=== PATIENT | female | born 1945 | race Caucasian/White ===

== ENCOUNTER 2017-01-05 19:45 | Outpatient (CLI) | payer MEDICARE, OTHER | END 2017-01-05 19:46 | disposition critical access hospital (66) | LOC: EMS 19:45 | PROVIDERS: ATTEND Surgery | DX: R53.1 Weakness (principal); R29.810 Facial weakness | CPT/HCPCS: A0425; A0427 ==

== ENCOUNTER 2017-01-05 20:04 | Emergency (ER) | payer MEDICARE, OTHER ==
--- NOTE | 2017-01-05 20:11 | ED Physician Documentation ---
PD HPI FOCAL NEURO - Stated complaint Stated Complaint: WEAKNESS, RIGHT FACIAL DROOP - History obtained from History obtained from: Patient, EMS - History of Present Illness Timing - onset: Other (71-year-old woman with history of TIA. She thinks she is on Plavix. She is not quite sure of her medications. She has been feeling generally weak for the last 2-3 days and she has a right facial droop of unknown time course. This is associated with a mild headache.) - Treatment prior to arrival Treatment prior to arrival: FSBS en route was in the one-teens Review of Systems Ten Systems: 10 systems reviewed and negative Constitutional: denies: Fever, Chills Cardiac: denies: Chest pain / pressure, Palpitations Respiratory: denies: Dyspnea, Cough GI: denies: Abdominal Pain PD PAST MEDICAL HISTORY - Past Medical History Past Medical History: Yes Neuro: TIA - Present Medications Home Medications: Ambulatory Orders Medication Instructions Recorded Confirmed Atorvastatin [Lipitor] 40 mg PO DAILY 01/05/17 01/05/17 Chlorthalidone 25 mg PO DAILY 01/05/17 01/05/17 Clopidogrel [Plavix] 75 mg PO ONCE 01/05/17 01/05/17 Memantine [Namenda] 5 mg PO BID 01/05/17 01/05/17 Sitagliptin Phosphate [Januvia] 25 mg PO DAILY 01/05/17 01/05/17 hydroCHLOROthiazide 25 mg PO DAILY 01/05/17 01/05/17 [Hydrochlorothiazide] - Allergies Allergies/Adverse Reactions: Allergies Allergy/AdvReac Type Severity Reaction Status Date / Time No Known Drug Allergies Allergy Verified 01/05/17 20:21 - Living Situation Living Situation: reports: With spouse/s.o. - Social History Does the pt smoke?: No - Family History Family history: reports: Non contributory PD ED PE NORMAL - Vitals Vital signs reviewed: Yes - General General: Alert and oriented X 3, No acute distress - HEENT HEENT: PERRL, EOMI, Other (She does have a right facial droop which is partial and spares the forehead) - Neck Neck: Supple, no meningeal sign, No bony TTP - Cardiac Cardiac: RRR, No murmur - Respiratory Respiratory: No respiratory distress, Clear bilaterally - Abdomen Abdomen: Soft, Non tender - Derm Derm: Normal color, Warm and dry - Extremities Extremities: No edema, No calf tenderness / cord - Neuro Neuro: Alert and oriented X 3 - Psych Psych: Normal mood, Normal affect NIHSS - Time Time: 20:06 - Level of Consciousness Level of consciousness: (0) Alert, Keenly responsive LOC Questions: (0) Answers both Q's correct LOC Commands: (0) Performs both correctly - Gaze Best Gaze: (0) Normal - Visual Visual: (0) No loss - Facial Palsy Facial Palsy: (2) Partial paralysis - Motor Arms (both separate) Motor Arm (right): (0) No drift Motor Arm (left): (0) No drift - Motor Legs (both separate) Motor Leg (right): (0) No drift Motor Leg (left): (0) No drift - Limb Ataxia Limb Ataxia: (0) Absent - Sensory Sensory: (0) Normal - Best Language Best Language: (0) No aphasia - Dysarthria Dysarthria: (0) Normal - Extinction and Inattention (formally neg Extinction and inattention: (0) No abnormality - Total Score/Results Total Score/Result: 2 Results - Vitals Vitals: Vital Signs - 24 hr 01/05/17 01/05/17 01/05/17 20:05 20:27 21:04 Temperature 36.3 C L Heart Rate 69 63 63 Respiratory 18 14 18 Rate Blood Pressure 190/61 H 155/74 H 138/55 H O2 Saturation 100 100 100 Oxygen O2 Source Room air - EKG (time done) 2013 Rate: Rate (enter#) (66) Rhythm: NSR [place]: Normal Intervals: Normal MO QRS: Normal Ischemia: Other (Baseline wander in the inferior leads making it difficult to interpret, no obvious ischemic change.) Computer interpretation: Agree with computer - Labs Labs: Laboratory Tests 01/05/17 01/05/17 01/05/17 20:40 20:40 20:40 WBC 6.5 RBC 4.53 Hgb 13.0 Hct 39.2 MCV 86.5 MCH 28.6 MCHC 33.1 RDW 12.9 Plt Count 200 MPV 8.9 Neut # 3.7 Lymph # 2.1 [place] # 0.5 Eos # 0.1 Baso # 0.1 Absolute Nucleated RBC 0.00 Nucleated RBC % 0.0 PT 10.9 INR 1.0 Sodium 139 Potassium 3.8 Chloride 104 Carbon Dioxide 21 Anion Gap 14.0 H BUN 37 H Creatinine 1.6 H Estimated GFR (MDRD) 32 L Glucose 141 H Calcium 9.2 Total Bilirubin 0.4 AST 23 ALT 23 Alkaline Phosphatase 52 Total Protein 7.2 Albumin 4.1 Globulin 3.1 Albumin/Globulin Ratio 1.3 Lipase 105 H Ethyl Alcohol 68.6 - Rads (name of study) CT Head Radiology: EMP read contemporaneously (Extensive chronic ischemic disease above and below the tentorium without obvious acute disease.) PD MEDICAL DECISION MAKING - ED course ED course: 71-year-old woman with strokelike symptoms. The arrived while she was in [place], says she has vascular dementia. On normal day does not know the date and is fairly confused, but is ambulatory with a good quality of life. She says she was normal up until 5:00 when she laid down to take a nap and all the current symptoms were present when she arose from the nap a little after 7. Case was discussed by phone with Dr. Jarred Orta at [facility]. He was willing to accept in transfer but does not recommend TPA at this juncture given the time course and underlying disease. It was preference that she be transferred to [facility] for continuity of care. Unfortunately they did not have a bed, either [facility] or [facility] was contacted and she was accepted by Dr. Dempsey the stroke neurologist there at 9:15 PM. Departure - Departure Disposition: 02 Transfer Acute Care Hosp Clinical Impression: Cerebrovascular accident (CVA) Qualifiers: CVA mechanism: embolism Precerebral and cerebral artery: unspecified cerebral artery Qualified Code(s): I63.40 - Cerebral infarction due to embolism of unspecified cerebral artery Condition: Stable
--- NOTE | 2017-01-05 20:41 | CT Preliminary Report ---
Exam: CT HEAD W/O STROKE PROTOCOL IMPRESSION: No acute hemorrhage. Extensive findings most consistent with chronic ischemic brain disea se above and below the tentorium. [facility] SITE ID: [id number]
--- NOTE | 2017-01-05 20:43 | CT Report ---
EXAM: CT HEAD EXAM DATE: 01/05/2017 08:28 PM. CLINICAL HISTORY: Right facial droop. Weakness. COMPARISON: None. TECHNIQUE: Multiaxial CT images were obtained from the foramen magnum to the vertex. Reformats: Coron al. IV contrast: None. In accordance with CT protocol optimization, one or more of the following dose reduction techniques w ere utilized for this exam: automated exposure control, adjustment of mA and/or KV based on patient s ize, or use of iterative reconstructive technique. FINDINGS: No evidence for acute intracranial hemorrhage. Diffuse volume loss. No midline shift. Ventriculomegal y is probably from atrophy. Chronic bilateral cerebellar ischemic infarcts, very large on the left and moderately large on the ri ght. Extensive bilateral chronic appearing cerebral encephalomalacia and gliosis consistent with old infar cts. Extensive chronic infarct of the medial right parietal and occipital lobes. Large and extensive regions of chronic encephalomalacia and gliosis involving the left frontal, parietal and occipital lo bes. Encephalomalacia and gliosis consistent with old cerebral infarcts appears to involve cortex as well as underlying white matter. No clear evidence for an acute infarct. Given the degree of extensive brain abnormality, a more recen t infarct could be missed. There are also findings of extensive chronic small vessel ischemic disease including lacunar like inf arcts in the region of the left thalami. Grossly intact calvarium. No acute sinus or mastoid disease. IMPRESSION: No acute hemorrhage. Extensive findings most consistent with chronic ischemic brain disea se above and below the tentorium. CRITICAL TEST: The findings were discussed with Beltran Knox on 01/05/2017 at 8:36 PM [facility] Referring Provider Line: [phone] SITE ID: [id number]
[2017-01-05 20:46] LABS: BASOPHILS # (AUTO) 0.1 10^3/uL (0.0-0.1); BASOPHILS % (AUTO) 1.1 %; EOSINOPHILS # (AUTO) 0.1 10^3/uL (0.0-0.7); EOSINOPHILS % (AUTO) 1.9 %; HCT - HEMATOCRIT 39.2 % (37.0-47.0); LYMPHOCYTES # (AUTO) 2.1 10^3/uL (1.5-3.5); LYMPHOCYTES % (AUTO) 32.5 %; MEAN CORPUSCULAR HEMOGLOBIN 28.6 pg (27.0-31.0); MEAN CORPUSCULAR HGB CONC 33.1 g/dL (32.0-36.0); MEAN CORPUSCULAR VOLUME 86.5 fL (81.0-99.0); MEAN PLATELET VOLUME 8.9 fL (7.9-10.8); MONOCYTES # (AUTO) 0.5 10^3/uL (0.0-1.0); MONOCYTES % (AUTO) 7.8 %; NEUTROPHILS # (AUTO) 3.7 10^3/uL (1.5-6.6); NEUTROPHILS % (AUTO) 56.7 %; RED BLOOD COUNT 4.53 10^6/uL (4.20-5.40); RED CELL DISTRIBUTION WIDTH 12.9 % (12.0-15.0); UNCORRECTED WHITE BLOOD COUNT 6.5 x10^3/uL; WHITE BLOOD COUNT 6.5 x10^3/uL (4.8-10.8)
[2017-01-05 20:56] LABS: PT - PROTHROMBIN TIME 10.9 secs (9.9-12.6)
[2017-01-05 20:59] LABS: ALBUMIN/GLOBULIN RATIO 1.3 (1.0-2.2); BILIRUBIN,TOTAL 0.4 mg/dL (0.2-1.0); CALCIUM 9.2 mg/dL (8.5-10.3); CREATININE 1.6 mg/dL (0.4-1.0); POTASSIUM 3.8 mmol/L (3.5-5.0); TOTAL PROTEIN 7.2 g/dL (6.7-8.2)
[2017-01-05 21:54] VITALS: BP 140/52
== END 2017-01-05 22:26 | disposition short-term general hospital (02) ==
LOC: ED 20:04
DX: I63.40 Cerebral infarction due to embolism of unspecified cerebral artery (principal); R94.31 Abnormal electrocardiogram [ECG] [EKG]; F01.50 Vascular dementia, unspecified severity, without behavioral disturbance, psychotic disturbance, mood disturbance, and anxiety; Z86.73 Personal history of transient ischemic attack (TIA), and cerebral infarction without residual deficits; Z79.01 Long term (current) use of anticoagulants
CPT/HCPCS: 36415; 70450; 80053; 83690; 84484; 85025; 85610; 93005; 99285; G0480; 80320

== ENCOUNTER 2017-03-26 12:38 | Emergency (ER) | payer MEDICARE, OTHER ==
[2017-03-26 12:59] VITALS: BP 147/65
[2017-03-26 13:38] LABS: ALBUMIN 4.5 g/dL (3.2-5.5); ALBUMIN/GLOBULIN RATIO 1.4 (1.0-2.2); BILIRUBIN,TOTAL 0.5 mg/dL (0.2-1.0); CALCIUM 9.7 mg/dL (8.5-10.3); CREATININE 1.4 mg/dL (0.4-1.0); TOTAL PROTEIN 7.8 g/dL (6.7-8.2)
--- NOTE | 2017-03-26 13:55 | ED Physician Documentation ---
History of Present Illness - Stated complaint Stated Complaint: LAB RESULT - Chief complaint Chief Complaint: General - History obtained from History obtained from: Patient, Family - History of Present Illness Timing: Other ([place] and her potassium was high so she was referred here for recheck. 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 : None HEENT: None Psych: None Musculoskeletal: None Derm: None - Past Surgical History Past Surgical History: Yes Cardiovascular: Coronary stent - Present Medications Home Medications: Ambulatory Orders Medication Instructions Recorded Confirmed Atorvastatin [Lipitor] 40 mg PO DAILY 01/05/17 03/26/17 Chlorthalidone 25 mg PO DAILY 01/05/17 03/26/17 Clopidogrel [Plavix] 75 mg PO ONCE 01/05/17 03/26/17 Memantine [Namenda] 5 mg PO BID 01/05/17 03/26/17 Sitagliptin Phosphate [Januvia] 25 mg PO DAILY 01/05/17 03/26/17 hydroCHLOROthiazide 25 mg PO DAILY 01/05/17 03/26/17 [Hydrochlorothiazide] - Allergies Allergies/Adverse Reactions: Allergies Allergy/AdvReac Type Severity Reaction Status Date / Time No Known Drug Allergies Allergy Verified 01/05/17 20:21 - Social History Does the pt smoke?: No Smoking Status: Never smoker Does the pt drink ETOH?: Yes Does the pt have substance abuse?: No - Immunizations Immunizations are current?: Yes PD ED PE NORMAL - Vitals Vital signs reviewed: Yes - General General: Alert and oriented X 3, No acute distress - Neuro Neuro: Alert and oriented X 3, Normal speech - Psych Psych: Normal mood, Normal affect Results - Vitals Vitals: Vital Signs - 24 hr 03/26/17 12:55 Temperature 37.1 C Heart Rate 69 Respiratory 18 Rate Blood Pressure 147/65 H O2 Saturation 99 Oxygen O2 Source Room air - Labs Labs: Laboratory Tests 03/26/17 13:16 Sodium 140 Potassium 3.9 Chloride 101 Carbon Dioxide 25 Anion Gap 14.0 H BUN 27 H Creatinine 1.4 H Estimated GFR (MDRD) 37 L Glucose 257 H Calcium 9.7 Total Bilirubin 0.5 AST 21 ALT 18 Alkaline Phosphatase 60 Total Protein 7.8 Albumin 4.5 Globulin 3.3 Albumin/Globulin Ratio 1.4 Lipase 63 H Departure - Departure Disposition: 01 Home, Self Care Clinical Impression: Abnormal laboratory test Hypertension Qualifiers: Hypertension type: essential hypertension Qualified Code(s): I10 - Essential ( primary) hypertension Condition: Good Record reviewed to determine appropriate education?: Yes Comments: On recheck your potassium here was 3.9 which is normal. Follow-up with your doctor as scheduled.
== END 2017-03-26 13:56 | disposition home or self-care (01) ==
LOC: ED 12:38
DX: R79.9 Abnormal finding of blood chemistry, unspecified (principal); I10 Essential (primary) hypertension; I25.10 Atherosclerotic heart disease of native coronary artery without angina pectoris; Z95.5 Presence of coronary angioplasty implant and graft; Z86.73 Personal history of transient ischemic attack (TIA), and cerebral infarction without residual deficits
CPT/HCPCS: 36415; 80053; 83690; 99282

== ENCOUNTER 2017-07-19 21:01 | Outpatient (CLI) | payer MEDICARE, OTHER | END 2017-07-19 21:02 | disposition critical access hospital (66) | LOC: EMS 21:01 | PROVIDERS: ATTEND Surgery | DX: R41.82 Altered mental status, unspecified (principal); R47.81 Slurred speech; Z72.89 Other problems related to lifestyle | CPT/HCPCS: A0425; A0427 ==

== ENCOUNTER 2017-07-19 21:21 | Emergency (ER) | payer MEDICARE, OTHER ==
[2017-07-19] MEDS ORDERED: THIAMINE INJ 100 MG in SODIUM CHLORIDE 0.9% 50 ML IV STA (21:25)
--- NOTE | 2017-07-19 21:26 | ED Physician Documentation ---
PD HPI FOCAL NEURO - Stated complaint Stated Complaint: GLF, STROKE? - Chief complaint Chief Complaint: Neuro - History obtained from History obtained from: EMS - History of Present Illness Timing - onset: Today (Reportedly was at [employer] drinking and then kind of slumped down to the ground without injury. There was a concern for stroke, she has had a stroke before. She denied drinking to the paramedics, but they felt she smelled strongly of alcohol. For me she is basically uncooperative and provides no specific history other than saying she wants to go home.) Review of Systems Unable to obtain: Intoxicated, Uncooperative PD PAST MEDICAL HISTORY - Present Medications Home Medications: Ambulatory Orders Medication Instructions Recorded Confirmed Atorvastatin [Lipitor] 40 mg PO DAILY 01/05/17 03/26/17 Chlorthalidone 25 mg PO DAILY 01/05/17 03/26/17 Clopidogrel [Plavix] 75 mg PO ONCE 01/05/17 03/26/17 Memantine [Namenda] 5 mg PO BID 01/05/17 03/26/17 Sitagliptin Phosphate [Januvia] 25 mg PO DAILY 01/05/17 03/26/17 hydroCHLOROthiazide 25 mg PO DAILY 01/05/17 03/26/17 [Hydrochlorothiazide] Atorvastatin [Lipitor] 80 mg PO DAILY 07/19/17 07/19/17 Chlorthalidone [Chlorthalidone] 1.5 tab PO DAILY 07/19/17 07/19/17 hydroCHLOROthiazide 1 tab PO DAILY 07/19/17 07/19/17 [Hydrochlorothiazide] - Allergies Allergies/Adverse Reactions: Allergies Allergy/AdvReac Type Severity Reaction Status Date / Time No Known Drug Allergies Allergy Unverified 07/19/17 21:25 PD ED PE NORMAL - Vitals Vital signs reviewed: Yes - General General: Other (She is sleepy, arouses to voice and will say her name follow commands, she is a reticent historian. 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 Eye Opening: To Voice Motor: Obeys Commands Verbal: Confused GCS Score: 13 Results - Vitals Vitals: Vital Signs - 24 hr 07/19/17 07/19/17 07/19/17 21:22 22:00 22:24 Temperature 36.1 C L Heart Rate 68 68 69 Respiratory 16 16 18 Rate Blood Pressure 160/100 H 135/82 H 154/69 H O2 Saturation 94 97 95 Oxygen O2 Source Room air - EKG (time done) 2130 Rate: Rate (enter#) (68) Rhythm: NSR [place]: Normal Intervals: Normal PA QRS: Normal Ischemia: Normal ST segments Computer interpretation: Agree with computer - Labs Labs: Laboratory Tests 07/19/17 07/19/17 07/19/17 21:55 21:55 21:55 WBC 6.4 RBC 4.40 Hgb 12.4 Hct 38.1 MCV 86.7 MCH 28.2 MCHC 32.6 RDW 13.0 Plt Count 207 MPV 8.3 Neut # (Auto) 3.3 Lymph # (Auto) 2.4 [place] # (Auto) 0.4 Eos # (Auto) 0.2 Baso # (Auto) 0.1 Absolute Nucleated RBC 0.00 Nucleated RBC % 0.0 PT 10.6 INR 0.9 Sodium 137 Potassium 4.2 Chloride 106 Carbon Dioxide 23 Anion Gap 8.0 BUN 25 H Creatinine 1.3 H Estimated GFR (MDRD) 40 L Glucose 129 H Calcium 8.5 Total Bilirubin 0.4 AST 21 ALT 17 Alkaline Phosphatase 52 Total Protein 6.9 Albumin 3.9 Globulin 3.0 Albumin/Globulin Ratio 1.3 Lipase 60 H Ethyl Alcohol 162.4 - Rads (name of study) CT Head Radiology: EMP read contemporaneously (NAD, old mult infarcts) PD MEDICAL DECISION MAKING - ED course ED course: 72-year-old woman presents with altered mental status having slumped down after drinking. The is adamant to the point of being belligerent that she is not intoxicated however rapid improvement in her clinical exam as well as her blood work would suggest otherwise. He is demanding a neurologic consultation and [facility] was paged for this at 10:17 PM. I spoke with the tele-stroke neurologist at [facility] who felt that there was little to no utility doing a neurologic consultation on this intoxicated woman. But we settled on and what I think is reasonable is the will take her home and she will sleep it off and if she has persistent new neurologic deficits he is advised to return immediately in the morning for reevaluation. Departure - Departure Disposition: 01 Home, Self Care Clinical Impression: Altered mental status Qualifiers: Altered mental status type: disorientation Qualified Code(s): R41.0 - Disorientation, unspecified Alcohol intoxication Qualifiers: Complication of substance-induced condition: uncomplicated Qualified Code(s): F10.920 - Alcohol use, unspecified with intoxication, uncomplicated Condition: Good Record reviewed to determine appropriate education?: Yes Instructions: ED Alcohol Intoxication Comments: Call your doctor to arrange a follow-up appointment, make the next available appointment. In the interim, return anytime if worse or if new symptoms develop. Your blood pressure was elevated today on check into the emergency department. This does not mean that you have hypertension, it is a common phenomenon to come to the emergency department and have elevated blood pressure. I recommend that you see your primary care physician within the week to have it rechecked when you are feeling better. Discharge Date/Time: 07/19/17 22:28
[2017-07-19 21:59] LABS: BASOPHILS # (AUTO) 0.1 10^3/uL (0.0-0.1); BASOPHILS % (AUTO) 1.3 %; EOSINOPHILS # (AUTO) 0.2 10^3/uL (0.0-0.7); EOSINOPHILS % (AUTO) 3.4 %; HGB - HEMOGLOBIN 12.4 g/dL (12.0-16.0); LYMPHOCYTES # (AUTO) 2.4 10^3/uL (1.5-3.5); LYMPHOCYTES % (AUTO) 37.7 %; MEAN CORPUSCULAR HEMOGLOBIN 28.2 pg (27.0-31.0); MEAN CORPUSCULAR HGB CONC 32.6 g/dL (32.0-36.0); MEAN CORPUSCULAR VOLUME 86.7 fL (81.0-99.0); MEAN PLATELET VOLUME 8.3 fL (7.9-10.8); MONOCYTES # (AUTO) 0.4 10^3/uL (0.0-1.0); MONOCYTES % (AUTO) 6.3 %; NEUTROPHILS # (AUTO) 3.3 10^3/uL (1.5-6.6); NEUTROPHILS % (AUTO) 51.3 %; PLT - PLATELET COUNT 207 10^3/uL (130-450); WHITE BLOOD COUNT 6.4 x10^3/uL (4.8-10.8)
[2017-07-19 22:06] LABS: INR 0.9 (0.8-1.2); PT - PROTHROMBIN TIME 10.6 secs (9.9-12.6)
--- NOTE | 2017-07-19 22:08 | CT Preliminary Report ---
Exam: CT HEAD W/O IMPRESSION: Chronic and senescent changes appear unchanged. Multifocal infarcts appear unchanged. No acute intracranial abnormality seen. [facility] SITE ID: [id number]
[2017-07-19 22:11] LABS: ALBUMIN 3.9 g/dL (3.2-5.5); ALBUMIN/GLOBULIN RATIO 1.3 (1.0-2.2); BILIRUBIN,TOTAL 0.4 mg/dL (0.2-1.0); CALCIUM 8.5 mg/dL (8.5-10.3); CREATININE 1.3 mg/dL (0.4-1.0); TOTAL PROTEIN 6.9 g/dL (6.7-8.2)
--- NOTE | 2017-07-19 22:11 | CT Report ---
EXAM: CT HEAD EXAM DATE: 07/19/2017 09:46 PM. CLINICAL HISTORY: Possible head injury, alcohol. COMPARISON: Head CT 01/05/2017. TECHNIQUE: Multiaxial CT images were obtained from the foramen magnum to the vertex. Reformats: Coron al. IV contrast: None. In accordance with CT protocol optimization, one or more of the following dose reduction techniques w ere utilized for this exam: automated exposure control, adjustment of mA and/or KV based on patient s ize, or use of iterative reconstructive technique. FINDINGS: Parenchyma: No intraparenchymal hemorrhage. No evidence of mass, midline shift, or CT findings of acu te infarction. Sky-white differentiation is distinct. Diffuse chronic microangiopathic white matter changes are evident. Moderate to large left frontal and parietal chronic encephalomalacia appear unch anged. Moderate right posterior parietal encephalomalacia, unchanged. Large left and moderate right c erebellar encephalomalacia, unchanged. Extraaxial Spaces: Normal for age. No subdural or epidural collections identified. Ventricles: The ventricles and cortical sulci are enlarged, consistent with age-related tissue loss. Sinuses: Unremarkable. Bones: No evidence of fracture or calvarial defect. IMPRESSION: Chronic and senescent changes appear unchanged. Multifocal infarcts appear unchanged. No acute intracranial abnormality seen. [facility] Referring Provider Line: [phone] SITE ID: [id number]
[2017-07-19 22:24] VITALS: BP 154/69
== END 2017-07-19 22:28 | disposition home or self-care (01) ==
LOC: EDUNIT# → ED 21:21
DX: R41.0 Disorientation, unspecified (principal); F10.129 Alcohol abuse with intoxication, unspecified; R03.0 Elevated blood-pressure reading, without diagnosis of hypertension
CPT/HCPCS: 70450; 80053; 83690; 85025; 85610; 93005; 96365; 99283; 99284; G0480; J3411; J7040; 36415; 80320

== ENCOUNTER 2018-02-07 13:28 | Emergency (ER) | payer MEDICARE, OTHER ==
[2018-02-07] MEDS ORDERED: HYDROcod/ACETAM 5/325 MG TABLET PO STA (16:23)
--- NOTE | 2018-02-07 16:38 | ED Physician Documentation ---
History of Present Illness - Stated complaint Stated Complaint: GLF - Chief complaint Chief Complaint: General - History obtained from History obtained from: Patient, Family - History of Present Illness Timing: Yesterday Pain level max: 8 Pain level now: 7 - Additonal information Additional information: 72-year-old female who fell after getting knocked over by a [place] yesterday. Landed on the concrete. Increased pain in her low back and sacral area today. Difficulty walking. Did strike her head, but no loss of consciousness. No vomiting. She does take Plavix however. Pain is better with rest and worse with movement. Has not taken anything for pain. 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 : None HEENT: None Psych: None Musculoskeletal: None Derm: None - Past Surgical History Past Surgical History: No Cardiovascular: Coronary stent - Present Medications Home Medications: Ambulatory Orders Medication Instructions Recorded Confirmed Chlorthalidone 25 mg PO DAILY 01/05/17 03/26/17 Clopidogrel [Plavix] 75 mg PO ONCE 01/05/17 03/26/17 Memantine [Namenda] 5 mg PO BID 01/05/17 03/26/17 Sitagliptin Phosphate [Januvia] 25 mg PO DAILY 01/05/17 03/26/17 hydroCHLOROthiazide 25 mg PO DAILY 01/05/17 03/26/17 [Hydrochlorothiazide] Atorvastatin [Lipitor] 80 mg PO DAILY 07/19/17 07/19/17 - Allergies Allergies/Adverse Reactions: Allergies Allergy/AdvReac Type Severity Reaction Status Date / Time Tetanus Vaccines and Toxoid Allergy Rash Verified 02/07/18 16:39 - Social History Does the pt smoke?: No Smoking Status: Never smoker Does the pt drink ETOH?: No Does the pt have substance abuse?: No - Immunizations Immunizations are current?: No - POLST Patient has POLST: No PD ED PE NORMAL - Vitals Vital signs reviewed: Yes - General General: Alert and oriented X 3, No acute distress, Well developed/nourished - HEENT HEENT: Atraumatic, PERRL, EOMI, Moist mucous membranes - Neck Neck: Supple, no meningeal sign, No bony TTP - Cardiac Cardiac: RRR - Respiratory Respiratory: No respiratory distress, Clear bilaterally - Abdomen Abdomen: Soft, Non tender, Non distended - Back Back: Other (No tenderness palpation over the cervical or thoracic spines. No step-off or deformity. She does have tenderness at the base of the lumbar spine as well as the upper sacrum. No step-off or deformity. Pelvis is stable.) - Derm Derm: Warm and dry - Extremities Extremities: No deformity, No tenderness to palpate, Normal ROM s pain, Other (No tenderness over the shoulders, elbows, wrists, hips, knees, ankles or feet.) - Neuro Neuro: Alert and oriented X 3, shim plug cutter 2-12 intact, No motor deficit, No sensory deficit Results - Vitals Vitals: Vital Signs - 24 hr 02/07/18 02/07/18 02/07/18 13:58 16:34 18:27 Temperature 36.4 C L Heart Rate 75 79 74 Respiratory 18 16 18 Rate Blood Pressure 125/57 L 130/62 135/66 H O2 Saturation 99 100 99 Oxygen O2 Source Room air - Rads (name of study) head cT Radiology: Prelim report reviewed, EMP read contemporaneously, See rad report (No acute intracranial abnormality. ) L spine xray Radiology: Prelim report reviewed, EMP read contemporaneously, See rad report (No acute fracture identified. ) sacrum xray Radiology: Prelim report reviewed, EMP read contemporaneously, See rad report (Osteoarthritis of the sacroiliac joints, hips and lower lumbar spine) PD MEDICAL DECISION MAKING - ED course Complexity details: reviewed results, re-evaluated patient, considered differential, d/w patient, d/w family ED course: 72-year-old female who presents after a fall. No acute findings on x-rays. Feels better after medications. Ambulating without difficulty. Patient and family counseled regarding signs and symptoms for which I believe and urgent re- evaluation would be necessary. Patient with good understanding of and agreement to plan and is comfortable going home at this time This document was made in part using voice recognition software. While efforts are made to proofread this document, sound alike and grammatical errors may occur. Departure - Departure Disposition: 01 Home, Self Care Clinical Impression: Head injury Qualifiers: Encounter type: initial encounter Qualified Code(s): S09.90XA - Unspecified injury of head, initial encounter Sacral contusion Qualifiers: Encounter type: initial encounter Qualified Code(s): S30.0XXA - Contusion of lower back and pelvis, initial encounter Condition: Good Instructions: ED Contusion Sacrum Coccyx Follow-Up: your,doctor in 1 week for re-evaluation. [Other] Comments: Thankfully your x-rays and CT scans are normal tonight. Return if you worsen. You can use Motrin or Tylenol as needed for pain. Ice will also help. Discharge Date/Time: 02/07/18 18:35
--- NOTE | 2018-02-07 17:31 | CT Report ---
Reason: fall, head injury, pt takes plavix Procedure Date: 02/07/2018 Accession Number: [id number] / [id number] Procedure: CT - Head W/O CPT Code: FULL RESULT: EXAM: CT HEAD EXAM DATE: 02/07/2018 05:13 PM. CLINICAL HISTORY: Fall, head injury, pt takes plavix. COMPARISON: 07/19/2017. TECHNIQUE: Multiaxial CT images were obtained from the foramen magnum to the vertex. Reformats: Sagittal and coronal. IV contrast: None. In accordance with CT protocol optimization, one or more of the following dose reduction techniques were utilized for this exam: automated exposure control, adjustment of mA and/or KV based on patient size, or use of iterative reconstructive technique. FINDINGS: Brain and ventricles: No intraparenchymal hemorrhage. No evidence of mass, midline shift, or CT findings of acute infarction. Multifocal old infarcts with encephalomalacia and volume loss are unchanged. Mild bilateral basal ganglia mineralization. Sky-white differentiation is distinct. The ventricles are within normal limits in size.No extra-axial hemorrhage. Sinuses and Orbits: Imaged paranasal sinuses, orbits, and mastoids show no significant abnormality. Bones: No evidence of fracture or calvarial defect. Other: None. IMPRESSION: 1. No acute intracranial abnormality. 2. Unchanged multifocal old infarcts. RADIA
--- NOTE | 2018-02-07 17:33 | XRAY Report ---
Reason: fall, low back pain Procedure Date: 02/07/2018 Accession Number: [id number] / [id number] Procedure: XR - Lumbar Spine 2 View CPT Code: FULL RESULT: EXAM: LUMBOSACRAL SPINE RADIOGRAPHY EXAM DATE: 02/07/2018 05:22 PM. CLINICAL HISTORY: Fall, low back pain. COMPARISONS: None. TECHNIQUE: 2 views. FINDINGS: Alignment: Normal. No spondylolisthesis or scoliosis. Bones: Five xes-kyc-wwnjasu lumbar vertebral bodies are present. No acute fracture identified. Mild wedging of T11 may be physiologic. Disks: Mild lower lumbar disk degeneration. Facets: Mild lower lumbar facet arthrosis. Sacroiliac Joints: Unremarkable. Soft Tissues: Unremarkable. IMPRESSION: No acute fracture identified. RADIA
--- NOTE | 2018-02-07 17:35 | XRAY Report ---
Reason: fall, sacrum pain Procedure Date: 02/07/2018 Accession Number: [id number] / [id number] Procedure: XR - Sacrum/Coccyx CPT Code: FULL RESULT: EXAM: SACRUM AND COCCYX RADIOGRAPHY EXAM DATE: 02/07/2018 05:22 PM. HISTORY: Fall, sacrum pain. COMPARISONS: None. TECHNIQUE: 3 views. FINDINGS: Alignment: Normal. The sacrum and coccyx are normally aligned. Bones: Normal. No fracture or bone lesion. Joints: Mild sacroiliac joint and hip osteoarthritis. Moderate degenerative change of the lower lumbar spine. Soft Tissues: Unremarkable. IMPRESSION: Osteoarthritis of the sacroiliac joints, hips and lower lumbar spine. RADIA
[2018-02-07 18:28] VITALS: BP 135/66
== END 2018-02-07 18:35 | disposition home or self-care (01) ==
LOC: ED 13:28
DX: S09.90XA Unspecified injury of head, initial encounter (principal); S30.0XXA Contusion of lower back and pelvis, initial encounter; W54.1XXA Struck by dog, initial encounter; Y93.9 Activity, unspecified; I25.10 Atherosclerotic heart disease of native coronary artery without angina pectoris; Z86.73 Personal history of transient ischemic attack (TIA), and cerebral infarction without residual deficits; Z79.02 Long term (current) use of antithrombotics/antiplatelets
CPT/HCPCS: 70450; 72100; 72220; 99283; A9270

== ENCOUNTER 2018-05-31 17:39 | Outpatient (CLI) | payer MEDICARE, OTHER | END 2018-05-31 17:40 | disposition critical access hospital (66) | LOC: EMS 17:39 | PROVIDERS: ATTEND Surgery | DX: R55 Syncope and collapse (principal); R51 Headache | CPT/HCPCS: A0425; A0427 ==

== ENCOUNTER 2018-05-31 17:59 | Inpatient (IN) | payer MEDICARE, OTHER ==
--- NOTE | 2018-05-31 18:22 | ED Physician Documentation ---
PD HPI SYNCOPE - Stated complaint Stated Complaint: SYNCOPE - Chief complaint Chief Complaint: Neuro - History obtained from History obtained from: Patient, Family, EMS - History of Present Illness Witnessed: Witnessed (She was at home and walking, said she did not feel good. Passed out but caught her so no injury. Cumming nauseous. 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 : None HEENT: None Psych: None Musculoskeletal: None Derm: None - Past Surgical History Past Surgical History: No General: Cholecystectomy /AUTOMOTIVE LOT ATTENDANT: Hysterectomy Cardiovascular: Coronary stent - Present Medications Home Medications: Ambulatory Orders Medication Instructions Recorded Confirmed Chlorthalidone 25 mg PO DAILY 01/05/17 03/26/17 Clopidogrel [Plavix] 75 mg PO ONCE 01/05/17 03/26/17 Memantine [Namenda] 5 mg PO BID 01/05/17 03/26/17 Sitagliptin Phosphate [Januvia] 25 mg PO DAILY 01/05/17 03/26/17 hydroCHLOROthiazide 25 mg PO DAILY 01/05/17 03/26/17 [Hydrochlorothiazide] Atorvastatin [Lipitor] 80 mg PO DAILY 07/19/17 07/19/17 - Allergies Allergies/Adverse Reactions: Allergies Allergy/AdvReac Type Severity Reaction Status Date / Time Tetanus Vaccines and Toxoid Allergy Rash Verified 05/31/18 18:13 - Social History Does the pt smoke?: No Smoking Status: Never smoker Does the pt drink ETOH?: No Does the pt have substance abuse?: No - Immunizations Immunizations are current?: No - POLST Patient has POLST: No PD ED PE NORMAL - Vitals Vital signs reviewed: Yes - General General: No acute distress, Well developed/nourished, Other (slurred speech, somnolent) - HEENT HEENT: PERRL (bloodshot eyes), Other (nystagmus) - Neck Neck: Supple, no meningeal sign, No bony TTP - Cardiac Cardiac: RRR, No murmur - Respiratory Respiratory: No respiratory distress, Clear bilaterally - Abdomen Abdomen: Normal bowel sounds, Soft, Non tender - Back Back: No CVA TTP, No spinal TTP - Derm Derm: Normal color, Warm and dry - Neuro Neuro: metal trimmer 2-12 intact, Other (She seems confused, she cannot come up with the month or the year or the president.) Eye Opening: Spontaneous Motor: Obeys Commands Results - Vitals Vitals: Vital Signs - 24 hr 05/31/18 05/31/18 18:08 19:38 Temperature 36.7 C Heart Rate 89 95 Respiratory 17 14 Rate Blood Pressure 194/70 H 177/88 H O2 Saturation 98 99 Oxygen O2 Source Room air - EKG (time done) 1815 Rate: Rate (enter#) (86) Rhythm: NSR [place]: Normal Intervals: Normal [place] QRS: Normal Ischemia: Normal ST segments Computer interpretation: Agree with computer - Labs Labs: Laboratory Tests 05/31/18 05/31/18 05/31/18 19:51 19:51 19:51 WBC 6.9 RBC 4.57 Hgb 12.9 Hct 39.1 MCV 85.6 MCH 28.2 MCHC 32.9 RDW 13.2 Plt Count 210 MPV 8.8 Neut # (Auto) 4.8 Lymph # (Auto) 1.5 [place] # (Auto) 0.4 Eos # (Auto) 0.1 Baso # (Auto) 0.1 Absolute Nucleated RBC 0.00 Nucleated RBC % 0.0 Sodium 134 L Potassium 4.5 Chloride 97 L Carbon Dioxide 27 Anion Gap 10.0 BUN 31 H Creatinine 1.8 H Estimated GFR (MDRD) 28 L Glucose 572 H* Calcium 9.1 Total Bilirubin 0.2 AST 16 ALT 12 Alkaline Phosphatase 74 Troponin I < 0.04 B-Natriuretic Peptide Total Protein 7.2 Albumin 3.9 Globulin 3.3 Albumin/Globulin Ratio 1.2 Lipase 89 H Ethyl Alcohol < 5.0 05/31/18 19:51 WBC RBC Hgb Hct MCV MCH MCHC RDW Plt Count MPV Neut # (Auto) Lymph # (Auto) [place] # (Auto) Eos # (Auto) Baso # (Auto) Absolute Nucleated RBC Nucleated RBC % Sodium Potassium Chloride Carbon Dioxide Anion Gap BUN Creatinine Estimated GFR (MDRD) Glucose Calcium Total Bilirubin AST ALT Alkaline Phosphatase Troponin I B-Natriuretic Peptide 92 Total Protein Albumin Globulin Albumin/Globulin Ratio Lipase Ethyl Alcohol - Rads (name of study) CT Head Radiology: EMP read contemporaneously (Old infarcts NAD) PD MEDICAL DECISION MAKING - ED course ED course: This is a 72-year-old woman who presents with a syncopal episode. On arrival here she seems demented but her exam is otherwise normal except for hypertension. During the course of her stay she did become a little agitated with more slurred speech. This could be due in some measure to her significant hyperglycemia for which she was administered IV fluids and insulin, or may be a bit of hypertensive encephalopathy and she was given labetalol here. Spoke with Dr. Mauricio for admission at 8:40 PM. Departure - Departure Disposition: ED Place in Observation Clinical Impression: Altered mental status, TIA (transient ischemic attack), Hyperglycemia Condition: Serious
--- NOTE | 2018-05-31 19:15 | CT Report ---
Reason: syncope, altered Procedure Date: 05/31/2018 Accession Number: [id number] / [id number] Procedure: CT - HEAD WO CPT Code: FULL RESULT: EXAM: CT HEAD EXAM DATE: 05/31/2018 06:55 PM. CLINICAL HISTORY: Syncope, altered. COMPARISON: HEAD W/O 02/07/2018 4:47 PM. TECHNIQUE: Multiaxial CT images were obtained from the foramen magnum to the vertex. Reformats: Sagittal and coronal. IV contrast: None. In accordance with CT protocol optimization, one or more of the following dose reduction techniques were utilized for this exam: automated exposure control, adjustment of mA and/or KV based on patient size, or use of iterative reconstructive technique. FINDINGS: Parenchyma: No intraparenchymal hemorrhage. No evidence of mass, midline shift, or CT findings of acute infarction. Sky-white differentiation is distinct. Diffuse chronic microangiopathic white matter changes are evident. Large regions of encephalomalacia involving both cerebellar lobes worse on the left than on the right, bilateral occipital, left parietal and left frontal regions are similar to the previous study. Chronic left basal ganglia lacunar infarct is noted. Extraaxial Spaces: Normal for age. No subdural or epidural collections identified. Ventricles: The ventricles and cortical sulci are enlarged, consistent with age-related tissue loss. Sinuses and orbits: Imaged paranasal sinuses, orbits, and mastoids show no significant abnormality. Bones: No evidence of fracture or calvarial defect. Other: Extensive calcifications are present in the cavernous carotid and vertebral arteries. Patient is status post left cataract procedure. IMPRESSION: 1. Generalized age-related cortical atrophic changes without evidence of acute intracranial abnormality. 2. Multiple areas of stable encephalomalacia from previous infarcts. RADIA
[2018-05-31 19:58] LABS: BASOPHILS # (AUTO) 0.1 10^3/uL (0.0-0.1); BASOPHILS % (AUTO) 1.1 %; EOSINOPHILS # (AUTO) 0.1 10^3/uL (0.0-0.7); EOSINOPHILS % (AUTO) 1.6 %; HGB - HEMOGLOBIN 12.9 g/dL (12.0-16.0); LYMPHOCYTES # (AUTO) 1.5 10^3/uL (1.5-3.5); LYMPHOCYTES % (AUTO) 21.5 %; MEAN CORPUSCULAR HEMOGLOBIN 28.2 pg (27.0-31.0); MEAN CORPUSCULAR HGB CONC 32.9 g/dL (32.0-36.0); MEAN CORPUSCULAR VOLUME 85.6 fL (81.0-99.0); MEAN PLATELET VOLUME 8.8 fL (7.9-10.8); MONOCYTES # (AUTO) 0.4 10^3/uL (0.0-1.0); MONOCYTES % (AUTO) 6.5 %; NEUTROPHILS # (AUTO) 4.8 10^3/uL (1.5-6.6); NEUTROPHILS % (AUTO) 69.3 %; PLT - PLATELET COUNT 210 10^3/uL (130-450); RED BLOOD COUNT 4.57 10^6/uL (4.20-5.40); RED CELL DISTRIBUTION WIDTH 13.2 % (12.0-15.0); WHITE BLOOD COUNT 6.9 x10^3/uL (4.8-10.8)
[2018-05-31 20:20] LABS: ALBUMIN 3.9 g/dL (3.2-5.5); ALBUMIN/GLOBULIN RATIO 1.2 (1.0-2.2); ALKALINE PHOSPHATASE 74 IU/L (42-121); ALT ALANINE AMINOTRANSFERASE 12 IU/L (10-60); AST ASPARTATE AMINOTRANSFERASE 16 IU/L (10-42); BILIRUBIN,TOTAL 0.2 mg/dL (0.2-1.0); BUN - BLOOD UREA NITROGEN 31 mg/dL (6-20); CALCIUM 9.1 mg/dL (8.5-10.3); CARBON DIOXIDE - CO2 27 mmol/L (21-32); CHLORIDE 97 mmol/L (101-111); CREATININE 1.8 mg/dL (0.4-1.0); GFR - MDRD 28 (>89); LIPASE 89 U/L (22-51); SODIUM 134 mmol/L (135-145); TOTAL PROTEIN 7.2 g/dL (6.7-8.2)
[2018-05-31 20:21] LABS: GLUCOSE 572 mg/dL (70-100)
[2018-05-31] MEDS ORDERED: SODIUM CHLORIDE 0.9% 1,000 ML IV ONE (20:28)
[2018-05-31] MEDS ORDERED: INSULIN REGULAR HUMAN 100 UNIT/1 ML 10 ML MDV IVP STA (20:28)
[2018-05-31] MEDS ORDERED: LABETALOL 20 MG/4 ML SYRINGE IVP STA (20:33)
[2018-05-31] MEDS ORDERED: LORazepam 2 MG/ML VIAL IVP STA (20:34)
[2018-05-31] MEDS ORDERED: ASPIRIN CHEW 81 MG TABLET PO STA (20:34)
[2018-05-31] MEDS ORDERED: ACETAMINOPHEN 325 MG TABLET PO PRN (20:52)
[2018-05-31] MEDS ORDERED: ONDANSETRON ODT 4 MG TABLET TL PRN (20:57)
[2018-05-31] MEDS ORDERED: SODIUM CHLORIDE FLUSH 0.9% 10 ML SYRINGE IVP PRN (20:57)
[2018-05-31] MEDS ORDERED: ATORVASTATIN 40 MG TABLET PO SCH (21:00)
[2018-05-31] MEDS ORDERED: LABETALOL 20 MG/4 ML SYRINGE IVP PRN (21:03)
[2018-05-31] MEDS ORDERED: hydrALAZINE INJ 20 MG/ML VIAL IVP PRN (21:04)
--- NOTE | 2018-05-31 21:11 | HISTORY & PHYSICAL EXAMINATION ---
Chief Complaint - Chief Complaint Chief Complaint: syncope with LOC and speech difficulties Stroke/TIA/Neuro Template - Admitted From Admitted from: ED - History Obtained From Records Reviewed: RN notes reviewed History obtained from: Patient, Family Exam limitations: Other (History of vascular dementia makes for a difficult history and physical and patient is a poor historian) - History of Present Illness HPI Comment/Other: This is a demented 72-year-old with history of uncontrolled hypertension, hyperlipidemia, CAD with prior stent x1, prior CVA who presents with a syncopal event with associated loss of consciousness for which has been had essentially caught her before hitting the floor. Patient does have a history of vascular dementia and was apparently having new onset dysarthria in the ER. Patient has chronic kidney disease stage III as per 2[facility] labs with a creatinine ranging from 1.31.6. Hyperglycemia was seen with a glucose of 572 with no reported history of insulin requiring diabetes or jyz-jzbchqj-pguawhjre type 2 diabetes per . Patient's alcohol level was less than 5.0 and a lipase of 89. Patient's vital signs are stable however hypertensive emergency noted with 194/70 and symptoms of what appeared to be hypertensive encephalopathy. IV labetalol plus aspirin and CT were performed in ED. CT showed no acute focal changes with Large encephalomalacia on both cerebellar lobes left more than right with chronic left basal ganglia lacunar infarcts noted. Patient with dysarthria which appears to be new onset for patient as per and family member. Patient has no apparent drooping of face and essentially with vascular dementia and unable to state the time or place currently. No bowel bladder incontinence or seizure activity noted. No trauma noted on initial exam. Pa tient to be admitted for further evaluation management treatment. 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: positive: Hysterectomy Cardiovascular: positive: Coronary stent Social & Family Hx - Social History Does the pt smoke?: No Smoking Status: Never smoker Does the pt drink ETOH?: No Does the pt have substance abuse?: No - POLST Patient has POLST: No Meds/Allgy - Home Medications Home Medications: Ambulatory Orders Medication Instructions Recorded Confirmed Chlorthalidone 25 mg PO DAILY 01/05/17 03/26/17 Clopidogrel [Plavix] 75 mg PO ONCE 01/05/17 03/26/17 Memantine [Namenda] 5 mg PO BID 01/05/17 03/26/17 Sitagliptin Phosphate [Januvia] 25 mg PO DAILY 01/05/17 03/26/17 hydroCHLOROthiazide 25 mg PO DAILY 01/05/17 03/26/17 [Hydrochlorothiazide] Atorvastatin [Lipitor] 80 mg PO DAILY 07/19/17 07/19/17 - Allergies Allergies/Adverse Reactions: Allergies Allergy/AdvReac Type Severity Reaction Status Date / Time Tetanus Vaccines and Toxoid Allergy Rash Verified 05/31/18 18:13 Review of Systems - All Other Systems All Other Systems: reports: Reviewed and negative Prior Level of Functionality: Unknown functional capacity and home ADLs. Patient is a poor historian with vascular dementia Exam - Vital Signs Vital Signs: Vital Signs x48h Temp Pulse Resp BP Pulse Ox 05/31/18 20:51 97 15 184/69 H 98 05/31/18 19:38 95 14 177/88 H 99 05/31/18 18:08 36.7 C 89 17 194/70 H 98 - Physical Exam General Appearance: positive: No acute distress, Alert, Anxious, Other (Patient with vascular dementia) Eyes Bilateral: positive: Normal inspection, PERRL, EOMI ENT: positive: ENT inspection nml, Pharynx nml, No signs of dehydration Neck: positive: Nml inspection, Thyroid nml, No JVD, Trachea midline. negative: Thyromegaly Respiratory: positive: Chest non-tender, No respiratory distress, Breath sounds nml Cardiovascular: positive: Regular rate & rhythm, No murmur, No gallop. negative: PMI displaced laterally, Gallop/S4 Peripheral Pulses: positive: 2+ Abdomen: positive: Non-tender, No organomegaly, Nml bowel sounds, No distention Extremities: positive: Non-tender, Full ROM, Nml appearance. negative: Pedal edema Neurologic/Psychiatric: positive: CN's nml (2-12), Disoriented to place, Disoriented to time, Slurred/abnml speech, Other (Patient has dysarthria). negative: Facial droop Babinski Reflex: Right: Absent, Left: Absent Results - Lab Results Lab results reviewed: Yes Fish Bones: 05/31/18 19:51 05/31/18 19:51 Other Lab Results: Lab Results x24hrs 05/31/18 05/31/18 05/31/18 Range/Units 19:51 19:51 19:51 WBC (4.8-10.8) x10^3/uL RBC (4.20-5.40) 10^6/uL Hgb (12.0-16.0) g/dL Hct (37.0-47.0) % MCV (81.0-99.0) fL MCH (27.0-31.0) pg MCHC (32.0-36.0) g/dL RDW (12.0-15.0) % Plt Count (130-450) 10^3/uL MPV (7.9-10.8) fL Neut # (Auto) (1.5-6.6) 10^3/uL Lymph # (Auto) (1.5-3.5) 10^3/uL [place] # (Auto) (0.0-1.0) 10^3/uL Eos # (Auto) (0.0-0.7) 10^3/uL Baso # (Auto) (0.0-0.1) 10^3/uL Absolute Nucleated RBC x10^3/uL Nucleated RBC % /100WBC Sodium 134 L (135-145) mmol/L Potassium 4.5 (3.5-5.0) mmol/L Chloride 97 L (101-111) mmol/L Carbon Dioxide 27 (21-32) mmol/L Anion Gap 10.0 (6-13) BUN 31 H (6-20) mg/dL Creatinine 1.8 H (0.4-1.0) mg/dL Estimated GFR (MDRD) 28 L (>89) Glucose 572 H* (70-100) mg/dL Calcium 9.1 (8.5-10.3) mg/dL Total Bilirubin 0.2 (0.2-1.0) mg/dL AST 16 (10-42) IU/L ALT 12 (10-60) IU/L Alkaline Phosphatase 74 (42-121) IU/L Troponin I < 0.04 (<0.49) ng/mL B-Natriuretic Peptide 92 (5-100) pg/mL Total Protein 7.2 (6.7-8.2) g/dL Albumin 3.9 (3.2-5.5) g/dL Globulin 3.3 (2.1-4.2) g/dL Albumin/Globulin Ratio 1.2 (1.0-2.2) Lipase 89 H (22-51) U/L Ethyl Alcohol < 5.0 mg/dL 05/31/18 Range/Units 19:51 WBC 6.9 (4.8-10.8) x10^3/uL RBC 4.57 (4.20-5.40) 10^6/uL Hgb 12.9 (12.0-16.0) g/dL Hct 39.1 (37.0-47.0) % MCV 85.6 (81.0-99.0) fL MCH 28.2 (27.0-31.0) pg MCHC 32.9 (32.0-36.0) g/dL RDW 13.2 (12.0-15.0) % Plt Count 210 (130-450) 10^3/uL MPV 8.8 (7.9-10.8) fL Neut # (Auto) 4.8 (1.5-6.6) 10^3/uL Lymph # (Auto) 1.5 (1.5-3.5) 10^3/uL [place] # (Auto) 0.4 (0.0-1.0) 10^3/uL Eos # (Auto) 0.1 (0.0-0.7) 10^3/uL Baso # (Auto) 0.1 (0.0-0.1) 10^3/uL Absolute Nucleated RBC 0.00 x10^3/uL Nucleated RBC % 0.0 /100WBC Sodium (135-145) mmol/L Potassium (3.5-5.0) mmol/L Chloride (101-111) mmol/L Carbon Dioxide (21-32) mmol/L Anion Gap (6-13) BUN (6-20) mg/dL Creatinine (0.4-1.0) mg/dL Estimated GFR (MDRD) (>89) Glucose (70-100) mg/dL Calcium (8.5-10.3) mg/dL Total Bilirubin (0.2-1.0) mg/dL AST (10-42) IU/L ALT (10-60) IU/L Alkaline Phosphatase (42-121) IU/L Troponin I (<0.49) ng/mL B-Natriuretic Peptide (5-100) pg/mL Total Protein (6.7-8.2) g/dL Albumin (3.2-5.5) g/dL Globulin (2.1-4.2) g/dL Albumin/Globulin Ratio (1.0-2.2) Lipase (22-51) U/L Ethyl Alcohol mg/dL - Diagnostic Imaging Results Diagnostic Imaging Results: positive: Final report reviewed Diagnostic Imaging Results Comments: CT head shows large areas of encephalomalacia left more than right cerebellar hemispheres, chronic left basal ganglia lacunar infarct unchanged with no acute infarcts noted. - EKG Results EKG Interpreted Independently: Yes EKG Comparison: positive: Old EKG unavailable EKG Findings: Sinus rhythm at 86 bpm with no bundle branch block or ST-T wave abnormalities. Impression/Plan - Problem List Problem List: Assessment: 1. Syncopal event with associated loss of consciousness 2. Acute suspected hypertensive encephalopathy 3. Hyperglycemia 4. TIA with history of prior CVA 5. Acute kidney injury/chronic kidney disease stage III 6. Hyperlipidemia 7. Vascular dementia Plan: 1. We will place in ICU under obs/tele, neurochecks, Neuroimaging to include MRI/MRA in the setting of prior CVA and patient not being on Plavix or other anticoagulants although home medication list Plavix and statin. Patient is a poor historian and has underlying vascular dementia. Possibly linked to patient's hypertensive excursions as patient's dysarthria along with loss of consciousness may all be linked to uncontrolled blood pressure. Obtain echocardiogram with bubble study in a.m. as well. Evaluate for other causes, TSH to follow. 2. Will place on IV labetalol as needed with parameters along with hydralazine IV, clonidine 0.2 mg p.o. QPM with parameters. We will try to avoid precipitous drops in blood pressure. MRI in a.m. 3. Patient is a poor historian, however conveys that she is not a diabetic however on her home medication she has Carluvfelicia listed. Will place on a carb controlled diet. Patient likely has underlying uncontrolled type 2 diabetes mellitus. Correctional insulin sliding scale has been ordered. Hemoglobin A1c was elevated at 10.9 with an average glucose of 266. Will place on insulin sliding scale medium to high correctional dose as hyperglycemia in the setting of cerebrovascular disease carries high mortality/morbidity. 4. Continue with medical management as per above. Aspirin 325 p.o. daily, neurochecks, neuro imaging studies to follow. 5. IV fluids to continue and anticipated on BP excursions. Avoid nephrotoxic agents, perfuse kidneys, likely attributable to hypertensive nephropathy. 6. In the setting of patient's prior CVA patient will need a high intensity statin atorvastatin 80 mg p.o. every afternoon to start. LDL and total cholesterol fasting lipids in a.m. 7. Patient was on Namenda may resume once patient tolerating p.o. diet. Patient has large areas of encephalomalacia which likely as a result of ischemic vascular insults which may worsen patient's cognition and memory. 8. Advance care planning education counseling. Surrogate/ was updated on patient's medical condition, plan of care, trajectory of illness and will continue with CODE STATUS as being full at this time. DVT/GI prophylaxis to continue with heparin renal adjusted and famotidine 20 mg p.o. twice daily. CODE STATUS: Full code. Core Measures - Anticipated LOS I expect patient to be DC'd or transferred within 96 hours.: Yes - DVT/VTE - Prophylaxis VTE/DVT Device ordered at admit?: Yes VTE/DVT Prophylaxis med ordered at admit?: Yes - Stroke - Rehab Assessment Rehab services assessment to be ordered?: No - AMI - Statin at Admit Aspirin Prescribed on Admit: Yes
[2018-05-31 21:32] LABS: HB2 TOTAL 14.1 g/dL; HEMOGLOBIN A1C 1.35 g/dL; HEMOGLOBIN A1C % 10.9 % (4.6-6.2)
[2018-05-31] MEDS: SODIUM CHLORIDE 0.9% 1,000 ML IV SCH (22:57)
[2018-05-31] MEDS: HEPARIN 5,000 UNIT/ML VIAL SUBQ SCH (22:57)
[2018-05-31] MEDS: FAMOTIDINE 20 MG TABLET PO SCH (22:57)
[2018-05-31] MEDS: INSULIN ASPART 300 UNIT/3 ML PEN SUBQ SCH (23:36)
[2018-06-01] MEDS: SODIUM CHLORIDE FLUSH 0.9% 10 ML SYRINGE IVP SCH ×2 (01:02→12:05)
[2018-06-01] MEDS: SODIUM CHLORIDE 0.9% 1,000 ML IV SCH (04:10)
[2018-06-01 04:50] LABS: BASOPHILS # (AUTO) 0.1 10^3/uL (0.0-0.1); BASOPHILS % (AUTO) 0.7 %; EOSINOPHILS # (AUTO) 0.2 10^3/uL (0.0-0.7); HGB - HEMOGLOBIN 12.3 g/dL (12.0-16.0); LYMPHOCYTES # (AUTO) 2.7 10^3/uL (1.5-3.5); LYMPHOCYTES % (AUTO) 34.9 %; MEAN CORPUSCULAR HEMOGLOBIN 27.8 pg (27.0-31.0); MEAN CORPUSCULAR HGB CONC 32.9 g/dL (32.0-36.0); MEAN CORPUSCULAR VOLUME 84.6 fL (81.0-99.0); MEAN PLATELET VOLUME 8.9 fL (7.9-10.8); MONOCYTES # (AUTO) 0.6 10^3/uL (0.0-1.0); MONOCYTES % (AUTO) 7.3 %; NEUTROPHILS # (AUTO) 4.2 10^3/uL (1.5-6.6); NEUTROPHILS % (AUTO) 55.1 %; PLT - PLATELET COUNT 190 10^3/uL (130-450); RED BLOOD COUNT 4.42 10^6/uL (4.20-5.40); RED CELL DISTRIBUTION WIDTH 13.1 % (12.0-15.0); WHITE BLOOD COUNT 7.7 x10^3/uL (4.8-10.8)
[2018-06-01 05:12] LABS: CHOL/HDL RATIO 4.7 (<4.4); CHOLESTEROL 214 mg/dL; HDL CHOLESTEROL 46 mg/dL; LDL CHOLESTEROL,CALCULATED 135 mg/dL; LDL/HDL RATIO 2.9 (<4.4); VLDL CHOLESTEROL 33 mg/dL
[2018-06-01 05:22] LABS: MAGNESIUM 1.9 mg/dL (1.7-2.8); PHOSPHORUS 3.2 mg/dL (2.5-4.6)
[2018-06-01 06:29] LABS: ALBUMIN 3.3 g/dL (3.2-5.5); CALCIUM 8.4 mg/dL (8.5-10.3); CREATININE 1.3 mg/dL (0.4-1.0); PHOSPHORUS 3.2 mg/dL (2.5-4.6)
[2018-06-01] MEDS ORDERED: ASPIRIN 325 MG TABLET PO SCH (08:00)
[2018-06-01] MEDS ORDERED: MULTIVITAMIN TABLET PO SCH (08:00)
[2018-06-01] MEDS: INSULIN ASPART 300 UNIT/3 ML PEN SUBQ SCH ×2 (08:28→12:09)
[2018-06-01] MEDS: FAMOTIDINE 20 MG TABLET PO SCH (08:40)
[2018-06-01] MEDS: HEPARIN 5,000 UNIT/ML VIAL SUBQ SCH (08:40)
[2018-06-01] MEDS ORDERED: GLIMEPIRIDE 2 MG TABLET PO SCH (12:00)
[2018-06-01] MEDS ORDERED: GADOBUTROL 7.5 MMOL/7.5 ML VIAL ONE (14:03)
--- NOTE | 2018-06-01 16:06 | MRI Report ---
Reason: TIA Procedure Date: 06/01/2018 Accession Number: [id number] / [id number] Procedure: MRI - Brain W/O CPT Code: FULL RESULT: EXAM: MRI BRAIN WITHOUT CONTRAST EXAM DATE: 06/01/2018 03:08 PM. CLINICAL HISTORY: Transient ischemic attack. Confusion, altered mental status. COMPARISON: HEAD W/O 05/31/2018 6:54 PM HEAD W/O 02/07/2018 4:47 PM. TECHNIQUE: Multiplanar, multisequence T1-weighted and fluid-sensitive MR sequences of the brain were performed. Sequences optimized for routine evaluation. Other: None. IV Contrast: None. FINDINGS: The images are degraded by severe motion. There is a small focus of increased signal intensity on the b-1000 diffusion weighted images demonstrated within the left occipital lobe exhibiting suggested reduced signal intensity on the ADC map (80, 805 and 76, 803). However of note, this is within an area of superimposed encephalomalacia and therefore it is possible that this could reflect an area of T2 shine through. Recommend correlation with clinical symptoms. There is no large confluent area of diffusion restriction to suggest an additional area of acute or subacute cerebral infarction. However, again the exam is somewhat limited due to motion. There are large areas of encephalomalacia involving the bilateral cerebellar hemispheres. There is extensive encephalomalacia of the right occipital lobe and to a lesser degree the left occipital lobe and a large area of involvement of the left parietal lobe as well as the left frontal lobe. There is an old lacunar infarction of the right centrum semiovale. There are punctate and confluent T2 hyperintensities of the subcortical, deep, and periventricular white matter of the supratentorial brain consistent with a moderate degree of chronic small vessel ischemia. There is mild to moderate generalized volume loss. There is a small focus of susceptibility demonstrated in the medial left frontal lobe (15, 701). There is a similar appearance in the left temporal operculum (13, 701). There is a similar appearance in the anterior and mid right temporal lobe. This likely reflects old blood products from previous microhemorrhages. This can be seen in cases of chronic hypertensive encephalopathy versus amyloid angiopathy. There is a small area of encephalomalacia demonstrated in the ventral left thalamus and the left lentiform nuclei. IMPRESSION: 1. The images are degraded by severe motion. 2. There are 2 adjacent punctate foci of questionable diffusion restriction versus T2 shine through in the left occipital lobe. This is partially superimposed on an area of encephalomalacia. Otherwise there is no large area of diffusion restriction to suggest a large area of acute or subacute cerebral infarction. If the patient remains symptomatic then follow-up repeat imaging once the patient is able to remain motionless for the exam may be useful and can be obtained as deemed clinically appropriate. 3. There are large areas of encephalomalacia within the bilateral cerebellar hemispheres and the right and left occipital lobes and the left parietal lobe and left frontal lobe. There is a moderate degree of chronic small vessel ischemia. There is mild to moderate generalized volume loss. The critical result notification system was initiated by Dr. Eric Wilson at 03:56 PM on 06/01/2018. The above critical result findings and limitations of the exam were discussed with Dr. Harmon by Dr. Eric Wilson at 04:04 PM on 06/01/2018.
--- NOTE | 2018-06-01 16:08 | MRI Report ---
Reason: TIA Procedure Date: 06/01/2018 Accession Number: [id number] / [id number] Procedure: MRI - Angio Brain W/O (MRA) CPT Code: FULL RESULT: EXAM MRA BRAIN EXAM DATE: 06/01/2018 03:09 PM. CLINICAL HISTORY: Confusion, altered mental status, TIA. COMPARISON: None. TECHNIQUE: Multiplanar, multisequence MRA sequences of the brain were performed. Other: None. Post-processing: Multiplanar 3D MIP reconstructions. IV Contrast: None. FINDINGS: The images are degraded by motion. Overall the signal within the vessels from flow-related enhancement is somewhat reduced which appears to be secondary to superimposed artifact. The right and left vertebral artery intradural segments that are within the provided field of view are grossly without flow-limiting stenosis. The bilateral posterior inferior cerebellar arteries are not adequately imaged. Therefore I cannot exclude pathologies within the bilateral PICAs. The right anterior inferior cerebellar artery is smooth and nonstenotic. The left anterior inferior cerebellar artery is smooth and nonstenotic. The basilar artery is without flow-limiting stenosis. There is narrowing suggested in the right P1 segment of the right posterior cerebral artery measuring approximately 50%. There is dropout of the signal in the distal right P2 segment of the right posterior cerebral artery. This is likely overestimated due to superimposed artifact. There is a small left posterior communicating artery suggested. The left P1 segment of the left posterior cerebral artery is poorly demonstrated. There is a questionable hypoplastic left P1 segment. The bilateral superior cerebellar arteries are poorly demonstrated due to a combination of motion and pulsation artifact. The left P2 segment of the left posterior cerebral artery is without flow-limiting stenosis. The right intracranial internal carotid artery is smooth and nonstenotic. The left intracranial internal carotid artery is smooth and nonstenotic. The right M1 and proximal M2 segments of the right middle cerebral artery are smooth and nonstenotic. There is dropout of the flow-related enhancement suggested in the distal left M1 segment of the left middle cerebral artery. This is likely overestimated due to superimposed motion. The suggested stenosis measures greater than 50% and likely greater than 70% but again likely overestimated. The proximal insular branches of the left middle cerebral artery exhibit suggested stenoses measuring between 25-70%. Again this may be somewhat overestimated. The right and left A1 segments of the anterior cerebral arteries are without flow-limiting stenosis. There is a small anterior communicating artery. The right and left A2 segments to the anterior cerebral arteries are without flow-limiting stenosis. IMPRESSION: 1. Limited evaluation of the [place] of [place] due to motion artifact. 2. The bilateral posterior inferior cerebellar arteries are not well demonstrated which could be secondary either to superimposed artifact and/or motion versus are outside of the inferior aspect of the provided field of view. 3. There is dropout of the flow-related enhancement in the distal left M1 segment of the left middle cerebral artery. This measures greater than 50% and possibly greater than 70% but may be somewhat overestimated due to superimposed artifact. There are multiple mild stenoses suggested in the left M2 segment of the left middle cerebral artery measuring between 25-70%. 4. There is dropout of the flow-related signal intensity in the distal right P2 segment of the right posterior cerebral artery. This may be overestimated due to superimposed artifact. The above call report findings and limitations of the exam were discussed with Dr. Harmon by Dr. Eric Wilson at 04:07 PM on 06/01/2018.
--- NOTE | 2018-06-01 16:52 | Discharge Plan ---
Discharge Plan Disposition: 01 Home, Self Care Condition: Good Prescriptions: Glimepiride [Amaryl] 1 mg PO DAILYWM #30 tablet Diet: Diabetic Activity Restrictions: Activity as Tolerated Shower Restrictions: No Driving Restrictions: No Additional Instructions or Follow Up instructions: You were admitted because of inability to speak. Since you have a previous history of stroke, your felt that you may be having another stroke. We found you to have high blood pressure of 194/70, uncontrolled diabetes with a glucose of 572. You were also mildly dehydrated with a newly elevated kidney function test called creatinine of 1.8. We treated your diabetes, lowered your sugar, hydrated you and your creatinine is now 1.3 and your glucose is 167. We did try and do an MRI of your brain, but you did not want to hold still for too long and the MRI shows the same chronic changes of an old stroke, and possibly small scar tissue on the left side of your brain that may or may not be relatively new. Movement made it too hard to tell. CAT scan of your head shows large a large area of the back of your brain that has become quite small and shrunken because of your previous old strokes. You also have a small old stroke in the left back of your brain that involves balance. While here, your heart rhythm remains normal. There is no suggestion of something called atrial fibrillation which sometimes can cause stroke. We did an ultrasound of your heart called an echocardiogram. The final report is pending but the preliminary report shows you to have normal valves, normal muscle function except for mild stiffness from hardening of the arteries. You appear to be back to baseline in that you were speaking, wandering the hallways, eating food. So your initial presentation of being unable to speak had resolved. 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 He will be taking you to see your primary care provider and getting possible referral for evaluation and treatment of that problem. Because of your elevated glucose, we have started you on a new pill called Amaryl. We would like you to take it in the morning before you eat breakfast. You are already on a blood thinner called Plavix. To help reduce risk of more stroke, for the next 30 days, only 30 days, take an aspirin 325 mg a day. Please see your primary care provider at the [facility] and follow-up in the next week for your diabetes to make sure the new pill is helping your glucose. We also would like your kidney tests redone to make sure you are on the mend. Since the ultrasound of your heart, echocardiogram, is only a preliminary report we would also like her primary care provider to review the final report. We would also recommend you see a specialist in memory loss from old strokes that has caused a personality change. [place] [facility] since [place] We also would recommend you see a Neurologist to help as well. No Smoking: If you smoke, Please STOP! Call for help.
[2018-06-01 17:30] VITALS: BP 167/78
[2018-06-01] MEDS ORDERED: cloNIDine 0.1 MG TABLET PO SCH ×2 (21:00)
--- NOTE | 2018-06-09 01:50 | DISCHARGE SUMMARY ---
Physician: Leandra Harmon MD DATE OF ADMISSION: 05/31/2018 DATE OF DISCHARGE: 06/01/2018 DISCHARGE DIAGNOSES 1. Transient ischemic attack manifesting as dysarthria and aphasia. 2. Hypertensive encephalopathy. 3. Syncope. 4. Uncontrolled type 2 diabetes mellitus with hyperglycemia, not on long-term use of insulin. 5. Acute kidney injury. 6. Dehydration. 7. Vascular dementia with behavioral disorder. DISCHARGE MEDICATIONS 1. Atorvastatin 80 mg daily. 2. Chlorthalidone 25 mg daily. 3. Plavix 75 mg daily. 4. Hydrochlorothiazide 25 mg daily. 5. Namenda 5 mg p.o. b.i.d. 6. Sitagliptin 25 mg p.o. daily. 7. Aspirin 325 mg daily. 8. Glimepiride 1 mg p.o. daily. I have asked the to please make sure that she only takes the aspirin for 1 month. After that, neurology can discuss whether she is supposed to be on Plavix and aspirin, or just Plavix by itself. This is because of increased risk of bleeding, increased risk of ulcers. PRINCIPAL PROCEDURES 1. Head CT shows generalized age-related cortical atrophic changes without evidence of intracranial abnormality. Multiple areas of stable encephalomalacia from previous infarcts. 2. Brain MRA canceled because of patient inability to follow commands and stay still on the table. 3. Brain MRI and MRA, which is a limited evaluation because of motion artifact. Bilateral posterior inferior cerebellar arteries not well demonstrated secondary to superimposed artifact or motion. There is drop off of the flow related enhancement at the distal M1 segment of the left middle cerebral artery. Measures greater than 50% and less than 70%. Multiple mild stenoses in the left M2 segment of the left middle cerebral artery measuring between 25% and 70%. There is drop off of the flow-related signal in the distal right P2 segment of the right posterior cerebellar artery. The MRI also continues to show motion artifact and she has questionable left occipital lobe punctate foci, questionable diffusion restriction. The radiologist informed me that he thinks this is chronic, but he cannot be sure, because of her movement. She has large areas of encephalomalacia within the bilateral cerebellar hemispheres in the right and left occipital lobes and the left parietal lobe and left frontal lobe. There is a moderate degree of chronic small vessel ischemia. Mild to moderate generalized volume loss. 4. Echocardiogram shows left ventricular size normal, ejection fraction 55%- 60%. Right ventricle normal. No significant valvular abnormality. HOSPITAL COURSE: The patient is a 72-year-old white female, who has a significant past history of uncontrolled hypertension, hyperlipidemia, coronary artery disease with a prior stent x1, prior multiple strokes, who presents with syncopal event associated with loss of consciousness as well as inability to speak. She has a history of vascular dementia. She is a poor historian, and her dysarthria or aphasia makes it difficult to get a history in the emergency room. Per the ER note, and Dr. Mauricio's note, the patient was at home and had an episode of near syncope associated with loss of consciousness and caught before she hit the floor by her . When she was brought to the ED, she appeared to be dysarthric. She was evaluated as a possible stroke and had hypertensive emergency. IV labetalol plus aspirin and a CT of the head were done. By the time she finished all of this workup, she appeared to be back to baseline. She had no subsequent drooping of face, no bowel or bladder incontinence indicating seizure. No trauma on exam. For the rest of her stay, the patient was resumed on medications, and blood pressure was watched. She is 140s to 150s. Afebrile. She is 99% on room air. She does wander. She does not like to be kept in her room. Her vascular dementia, with occasional behavioral disorder as manifested by anger at her and attempting to take her clothes off in the lobby, were present. We did attempt to do an MRI/MRA, but the patient could not be kept still in the MRI scanner. I did not feel it would be prudent to sedate her enough to do that. This is because she has a known history of strokes, dementia, and obvious encephalomalacia on CT. Throughout her stay, her was very vocal. He initially stated that he wanted his transferred to [facility], felt that this hospital was "worthless," and that we could not take care of his . He was offered transfer to a higher level of care on the night of admission by the hospitalist. He declined. He felt that at 9 o'clock at night it is too late to be transferring someone. Over the next day, the patient manifested her dementia and her behavior. The was speaking in a loud voice, again using derogatory language toward nursing and myself. He demanded to see her medical records because he is a physician dental assistant instructor and states that with his level of education he is able to interpret her CTs, MRIs, and labs. Out of courtesy, since he is her power of county attorney, we did allow him to look at the medical record. I pointed out to him that her glycosylated hemoglobin is 10.9%, and he said "I know that." I asked about her diabetic management, and he said that she had recently been discontinued from her diabetic medication. As such, I suggested that we could start her back on Amaryl 1 mg daily, and to please see her primary care provider in followup to manage her risk for recurrent strokes and continued arteriosclerosis. I carefully explained that we would like to see her glycosylated hemoglobin closer to 7, and a blood pressure to be consistent close to 140/70. Again, he stated that he knew that. He asked for her to be seen in consultation by a neurologist or a specialist in geriatric psychiatry. I explained that we do not have that at this hospital, and he again became loud voiced, derogatory to the abilities of this facility. I did offer to give him names of possible [facility]-psych or neurology physicians in [place] or the [facility]. He said that he would decline that offer, and he would take her to see her own primary care provider at [facility] and that they would find referrals for him. At this last conversation, the patient is standing at my side. She has calmed down enough to be very pleasant. She asked me if I am having a good day. She even steps up to give me a hug and thank the nurses for all their care. PHYSICAL EXAMINATION VITAL SIGNS: Temperature is 36.8, blood pressure 167/78, respirations 80, respiratory rate 16, and 98% on room air. GENERAL: She is an elderly, slender female at 5 feet tall, 55 kg. She is alert to person, recognizes her . She does not know where she is, and she does not know why she is here, and she just really wants to go home. She is vocalizing normally. Walking in the hallways normally without ataxia. NECK: Clear. No JVD. LUNGS: Clear. HEART: She has a regular rate and rhythm with a soft systolic ejection murmur. Telemetry for the time she was here was negative for arrhythmia. ABDOMEN: Soft, nontender. NEUROLOGIC: There is definitely dementia, but I am not observing dense focal deficits. Her dysarthria has resolved. She is discharged in stable condition. We are asking her to please follow up in the clinic and gave those instructions to her, knowing that she has dementia and her will be reading them. TD: 06/08/2018 17:24 GOUVERNEUR HEALTHEdwin
== END 2018-06-01 17:20 | disposition home or self-care (01) | DRG 78 ==
LOC: EDUNIT# → ED 17:59 → ICU 20:57
PROVIDERS: ADMIT Family Medicine; ATTEND Specialist
DX: I67.4 Hypertensive encephalopathy (principal); R41.82 Altered mental status, unspecified; R73.9 Hyperglycemia, unspecified; F03.90 Unspecified dementia, unspecified severity, without behavioral disturbance, psychotic disturbance, mood disturbance, and anxiety; G45.9 Transient cerebral ischemic attack, unspecified; N17.9 Acute kidney failure, unspecified; F01.51 Vascular dementia, unspecified severity, with behavioral disturbance; I16.1 Hypertensive emergency; E11.65 Type 2 diabetes mellitus with hyperglycemia; R55 Syncope and collapse; E86.0 Dehydration; Z91.83 Wandering in diseases classified elsewhere; I69.398 Other sequelae of cerebral infarction; G93.89 Other specified disorders of brain; E78.5 Hyperlipidemia, unspecified; I12.9 Hypertensive chronic kidney disease with stage 1 through stage 4 chronic kidney disease, or unspecified chronic kidney disease; E11.22 Type 2 diabetes mellitus with diabetic chronic kidney disease; N18.3 Chronic kidney disease, stage 3 (moderate); I25.10 Atherosclerotic heart disease of native coronary artery without angina pectoris; Z79.02 Long term (current) use of antithrombotics/antiplatelets; Z79.84 Long term (current) use of oral hypoglycemic drugs; Z79.899 Other long term (current) drug therapy; Z95.5 Presence of coronary angioplasty implant and graft
CPT/HCPCS: 36415; 70450; 70544; 70551; 80053; 80061; 80069; 83036; 83690; 83735; 83880; 84100; 84443; 84484; 85025; 87150; 92610; 93005; 93306; 96361; 96374; 96375; 99285; A9270; A9585; J1815; J2060; 80320; 83721; 99284